=== PATIENT | male | born 2000 | race Two or more races ===

== ENCOUNTER 2019-12-29 11:33 | Emergency (ER) | payer BC, MEDICAID, OTHER, SELFPAY ==
[~2019-12-29] VITALS: Ht 175.3 cm; Wt 81.0 kg
[2019-12-29 11:37] VITALS: BP 156/94
--- NOTE | 2019-12-29 12:06 | NUR ---
[employer]ED [employer]: PT CALLED FOR ROOM, NO ANSWER, PER "FRIEND IN LOBBY" ALREADY BROUGHT BACK. CALL TO [facility], NO ANSWER. PT TO GO TO ROOM WHEN RETURN FROM [facility]
--- NOTE | 2019-12-29 12:13 | NUR ---
Pt not in room, pt to be in [facility] at this time.
[2019-12-29 12:26] LABS: BASOPHILS # (AUTO) 0.01 x10^3/uL (0-0.1); BASOPHILS % (AUTO) 0 % (0-1); EOSINOPHILS # (AUTO) 0.01 x10^3/uL (0-0.4); EOSINOPHILS % (AUTO) 0 % (1-7); LYMPHOCYTES # (AUTO) 1.22 x10^3/uL (1-3.4); LYMPHOCYTES % (AUTO) 26 % (22-44); MD NO; MEAN CORPUSCULAR HEMOGLOBIN 30.6 pg (27.5-34.5); MEAN CORPUSCULAR HGB CONC 33.9 g/dL (33.2-36.2); MEAN CORPUSCULAR VOLUME 90.3 fL (81-97); MEAN PLATELET VOLUME 7.4 fL (7.4-10.4); MONOCYTES # (AUTO) 0.31 x10^3/uL (0.2-0.8); MONOCYTES % (AUTO) 7 % (2-9); NEUTROPHILS # (AUTO) 3.13 x10^3/uL (1.8-6.8); NEUTROPHILS % (AUTO) 67 % (42-75); PLATELET COUNT 223 x10^3/uL (130-400); RED BLOOD COUNT 5.96 x10^6/uL (4.38-5.82); RED CELL DISTRIBUTION WIDTH 12.9 % (9.4-14.8)
[2019-12-29 12:26] LABS: MICROSCOPIC NOT IND
--- NOTE | 2019-12-29 12:31 | NUR ---
Pt back to room, pt arrives to ed with scrotal swelling and pain after walking alot at work. Pt reports swelling resolves but continues to return. Pt reports that it can be painful at times. Pt deneis any trauma or medical issues. No known intercourse with an individual with an STI, pt reports also no hx of an sti.
[2019-12-29 12:36] LABS: ALBUMIN 4.5 g/dL (3.4-5.0); ANION GAP 7 mmol/L (5-15); CHLORIDE 107 mmol/L (98-107); CREATININE 1.18 mg/dL (0.7-1.3)
--- NOTE | 2019-12-29 13:56 | NUR ---
Patient/Caregiver given discharge instructions and they have confirmed that they understand the instructions. Patient ambulatory with steady gait.
== END 2019-12-29 14:00 | disposition home or self-care (01) ==
LOC: ED 12:29
DX: N50.82 Scrotal pain (principal)
CPT/HCPCS: 36415; 76870; 80048; 81003; 82040; 85025; 99284